=== PATIENT | female | born 1950 | race Caucasian/White ===

== ENCOUNTER 2019-06-23 11:03 | Observation (INO) ==
[2019-06-23 11:46] LABS: Basophils # 0.1 K/mcL (0.0-0.2); Basophils % 1.3 %; Eosinophils # 0.1 K/mcL (0.0-0.6); Eosinophils % 1.2 %; Hematocrit 50.2 % (35.3-44.9); Immature Granulocytes % 0.3 % (0-4); Lymphocytes # 1.4 K/mcL (0.6-4.6); Lymphocytes % 19.9 %; Mean Corpuscular HGB Conc 33.9 g/dL (31.6-35.5); Mean Corpuscular Hemoglobin 31.7 pg (28.0-33.3); Mean Corpuscular Volume 93.5 fL (83.0-100.0); Mean Platelet Volume 9.5 fL (9.4-12.4); Monocytes % 13.9 %; Neutrophils # 4.4 K/mcL (1.6-8.9); Platelet Count 211 K/mcL (140-400); Red Blood Count 5.37 M/mcL (3.82-4.97); Red Cell Distribution Width 14.2 % (11.5-14.5); Segmented Neutrophils % 63.4 %; White Blood Count 6.9 K/mcL (4.3-11.1)
[2019-06-23] MEDS ORDERED: Aspirin 81 MG TAB.CHEW PO ONE (11:48)
[2019-06-23 11:53] LABS: Carboxyhemoglobin 3.7 % (0-3)
[2019-06-23 11:54] LABS: INR 1.6; Prothrombin Time 18.5 Seconds (9.4-12.1)
[2019-06-23 11:57] LABS: Activated Partial Thrombo Time 35.2 Seconds (26.0-36.0)
[2019-06-23 12:02] LABS: Alanine Aminotransferase 16 Units/L (7-52); Albumin 3.5 g/dL (3.5-5.7); Albumin/Globulin Ratio 1.1 (1.1-2.2); Alkaline Phosphatase 105 Units/L (34-104); Aspartate Amino Transferase 33 Units/L (13-39); BUN/Creatinine Ratio 18 (6-26); Blood Urea Nitrogen 20 mg/dL (8-23); Calcium 9.2 mg/dL (8.6-10.3); Carbon Dioxide 26 mEq/L (23-29); Chloride 90 mEq/L (98-107); Globulin 3.1 g/dL (2.4-3.5); Glucose 65 mg/dL (70-105); Osmolality,Calculated 277 (280-300); Potassium 4.6 mEq/L (3.5-5.1); Sodium 133 mEq/L (136-145); Total Protein 6.6 g/dL (6.4-8.9); eGFR For African Americans 57 (> 60); eGFR For Non-African Americans 47 (> 60)
[2019-06-23 12:05] LABS: Troponin I < 0.03 ng/mL (< 0.04)
[2019-06-23] MEDS ORDERED: Dextrose Gel 15 GM/37.5 ML TUBE PO PRN ×2 (13:57)
[2019-06-23] MEDS ORDERED: Naloxone 0.4 MG/ML INJ IVP PRN (13:57)
[2019-06-23] MEDS ORDERED: *HR* Dextrose 50 % in Water (Vial) 50 ML VIAL IVP PRN (13:57)
[2019-06-23] MEDS ORDERED: D5% in Water 1,000 ML IVC PRN (13:57)
[2019-06-23] MEDS ORDERED: Albuterol 2.5 MG/3 ML NEBULIZER AER SCH (16:00)
[2019-06-23] MEDS ORDERED: Albuterol 2.5 MG/3 ML NEBULIZER AER PRN (16:15)
[2019-06-23] MEDS ORDERED: *HR* Rivaroxaban 15 MG TABLET PO SCH (17:00)
[2019-06-23] MEDS ORDERED: Bumetanide 1 MG/4 ML VIAL IVP SCH (17:00)
[2019-06-23] MEDS: Insulin LISPRO 300 UNITS/3 ML VIAL SQ SCH (17:56)
[2019-06-23] MEDS: Budesonide/Formoterol 80/4.5 1 PUFF INH IH SCH (20:47)
[2019-06-23] MEDS: *HR* Digoxin 0.5 MG/2 ML AMPUL IVP SCH (20:53)
[2019-06-24] MEDS: *HR* Digoxin 0.5 MG/2 ML AMPUL IVP SCH (03:23)
[2019-06-24 05:38] LABS: Basophils # 0.1 K/mcL (0.0-0.2); Basophils % 1.1 %; Eosinophils # 0.2 K/mcL (0.0-0.6); Eosinophils % 3.7 %; Hematocrit 44.1 % (35.3-44.9); Immature Granulocytes % 0.6 % (0-4); Lymphocytes # 1.2 K/mcL (0.6-4.6); Mean Corpuscular Hemoglobin 31.4 pg (28.0-33.3); Mean Corpuscular Volume 92.3 fL (83.0-100.0); Mean Platelet Volume 9.6 fL (9.4-12.4); Monocytes # 0.9 K/mcL (0.0-1.3); Monocytes % 16.9 %; Neutrophils # 2.9 K/mcL (1.6-8.9); Platelet Count 184 K/mcL (140-400); Red Blood Count 4.78 M/mcL (3.82-4.97); Segmented Neutrophils % 54.7 %; White Blood Count 5.3 K/mcL (4.3-11.1)
[2019-06-24 06:20] LABS: BUN/Creatinine Ratio 23 (6-26); Blood Urea Nitrogen 18 mg/dL (8-23); Calcium 8.4 mg/dL (8.6-10.3); Carbon Dioxide 31 mEq/L (23-29); Chloride 94 mEq/L (98-107); Glucose 77 mg/dL (70-105); Osmolality,Calculated 277 (280-300); Sodium 133 mEq/L (136-145); eGFR For African Americans > 60 (> 60); eGFR For Non-African Americans > 60 (> 60)
[2019-06-24] MEDS: Insulin LISPRO 300 UNITS/3 ML VIAL SQ SCH ×2 (08:02→13:15)
[2019-06-24] MEDS ORDERED: Aspirin Enteric Coated 81 MG Tablet PO SCH (09:00)
[2019-06-24] MEDS ORDERED: Loratadine 10 MG TABLET PO SCH (09:00)
[2019-06-24] MEDS ORDERED: Furosemide 20 MG TABLET PO SCH (09:00)
[2019-06-24] MEDS: Budesonide/Formoterol 80/4.5 1 PUFF INH IH SCH (10:02)
[2019-06-24 11:59] VITALS: BP 148/102
== END 2019-06-24 16:10 | disposition home or self-care (01) ==
LOC: EMEROOPIK 11:03 → INPPIK 11:03 → SUATTDRO 13:24 → INPPIK 14:33
PROVIDERS: ADMIT Internal Medicine; ATTEND Family Medicine

== ENCOUNTER 2019-07-18 02:18 | Inpatient (IN) ==
[2019-07-18] MEDS ORDERED: Ondansetron 4 MG/2 ML VIAL ONE ×2 (02:27→04:00)
[2019-07-18] MEDS ORDERED: methylPREDNISolone 125 MG/2 ML VIAL IVP ONE (03:02)
[2019-07-18] MEDS ORDERED: Ipratropium/Albuterol Neb 3 ML IH ONE (03:02)
[2019-07-18 05:09] LABS: Basophils # 0.1 K/mcL (0.0-0.2); Basophils % 1.1 %; Eosinophils % 0.3 %; Hemoglobin 20.1 g/dL (11.5-15.4); Immature Granulocytes % 0.2 % (0-4); Lymphocytes # 1.4 K/mcL (0.6-4.6); Lymphocytes % 15.8 %; Mean Corpuscular HGB Conc 33.8 g/dL (31.6-35.5); Mean Corpuscular Hemoglobin 30.8 pg (28.0-33.3); Mean Corpuscular Volume 91.3 fL (83.0-100.0); Monocytes # 1.2 K/mcL (0.0-1.3); Monocytes % 13.1 %; Neutrophils # 6.1 K/mcL (1.6-8.9); Platelet Count 247 K/mcL (140-400); Red Blood Count 6.52 M/mcL (3.82-4.97); Red Cell Distribution Width 14.6 % (11.5-14.5); Segmented Neutrophils % 69.5 %; White Blood Count 8.8 K/mcL (4.3-11.1)
[2019-07-18 05:21] LABS: Hematocrit 59.5 % (35.3-44.9)
[2019-07-18] MEDS ORDERED: Isovue-370 500 ML BOTTLE IVP ONE (05:24)
[2019-07-18 05:46] LABS: Alanine Aminotransferase 12 Units/L (7-52); Albumin 3.2 g/dL (3.5-5.7); Albumin/Globulin Ratio 0.9 (1.1-2.2); Alkaline Phosphatase 89 Units/L (34-104); Aspartate Amino Transferase 28 Units/L (13-39); BUN/Creatinine Ratio 18 (6-26); Bilirubin,Total 0.8 mg/dL (0.3-1.0); Blood Urea Nitrogen 14 mg/dL (8-23); Calcium 9.2 mg/dL (8.6-10.3); Carbon Dioxide 22 mEq/L (23-29); Chloride 96 mEq/L (98-107); Globulin 3.4 g/dL (2.4-3.5); Glucose 73 mg/dL (70-105); Osmolality,Calculated 279 (280-300); Potassium 5.1 mEq/L (3.5-5.1); Sodium 135 mEq/L (136-145); Total Protein 6.6 g/dL (6.4-8.9); eGFR For African Americans > 60 (> 60); eGFR For Non-African Americans > 60 (> 60)
[2019-07-18] MEDS ORDERED: Ondansetron 4 MG/2 ML VIAL IVP ONE (06:46)
[2019-07-18] MEDS ORDERED: Ondansetron ODT 4 MG TAB.RAPDIS SL PRN (10:20)
[2019-07-18] MEDS ORDERED: Mag Hydrox/Al Hydrox/Simeth 30 ML UDC PO PRN (10:20)
[2019-07-18] MEDS ORDERED: Naloxone 0.4 MG/ML INJ IVP PRN (10:20)
[2019-07-18] MEDS ORDERED: Ipratropium/Albuterol Neb 3 ML IH PRN (10:32)
[2019-07-18] MEDS: Budesonide/Formoterol 80/4.5 1 PUFF INH IH SCH ×2 (10:57→22:16)
[2019-07-18] MEDS: 0.9 % Sodium Chloride 1,000 ML IVC SCH ×2 (12:15→17:26)
[2019-07-18] MEDS ORDERED: *HR* Metoprolol 5 MG/5 ML VIAL IVP ONE (12:25)
[2019-07-18] MEDS ORDERED: Ondansetron ODT 4 MG TAB.RAPDIS SL ONE (16:00)
[2019-07-18] MEDS ORDERED: Albuterol 2.5 MG/3 ML NEBULIZER IH PRN (16:00)
[2019-07-18] MEDS ORDERED: 0.9 % Sodium Chloride 500 ML IV ONE (16:03)
[2019-07-18] MEDS ORDERED: *HR* Rivaroxaban 10 MG TABLET PO SCH (17:00)
[2019-07-18] MEDS: MethylPREDNISolone 40 MG/ML VIAL IVP SCH ×2 (17:27→23:59)
[2019-07-18 18:25] LABS: Adenovirus Not Detected (Not Detect); Bordetella Pertussis Not Detected (Not Detect); Chlamydophila pneumoniae Not Detected (Not Detect); Coronavirus 229E Not Detected (Not Detect); Coronavirus HKU1 Not Detected (Not Detect); Coronavirus NL63 Not Detected (Not Detect); Coronavirus OC43 Not Detected (Not Detect); Human Metapneumovirus Not Detected (Not Detect); Human Rhinovirus/Enterovirus Not Detected (Not Detect); Influenza A Subtype 2009 H1 Not Detected (Not Detect); Influenza B Not Detected (Not Detect); Mycoplasma pneumoniae Not Detected (Not Detect); Parainfluenza Virus 1 Not Detected (Not Detect); Parainfluenza Virus 2 Not Detected (Not Detect); Parainfluenza Virus 3 Not Detected (Not Detect); Parainfluenza Virus 4 Not Detected (Not Detect); Respiratory Syncytial Virus Not Detected (Not Detect)
[2019-07-18] MEDS: Metoprolol XL (24 HR) Succ 50 MG TAB.ER.24H PO SCH (20:03)
[2019-07-18] MEDS: Ondansetron ODT 4 MG TAB.RAPDIS SL PRN (20:18)
[2019-07-18 21:16] LABS: Bilirubin,Urine Moderate (Negative); Blood,Urine Trace-intact (Negative); Clarity,Urine Slightly Cloudy (Clear); Glucose,Urine (UA) Normal (Normal); Ketones,Urine 15 mg/dL (Negative); Leukocyte Esterase,Urine Negative (Negative); Nitrite,Urine Negative (Negative); Protein,Urine 100 mg/dL (Neg-Trace); Specific Gravity,Urine 1.015 (1.010-1.025); Urobilinogen,Urine Normal (Normal)
[2019-07-18 21:23] LABS: Color,Urine Dark-Yellow (Yellow); WBC,Urine 0-3 per hpf (0-3)
[2019-07-18 21:24] LABS: Hyaline Casts,Urine Few per lpf (None-Few); Mucus,Urine Few per lpf (Few); Squamous Epithelial Cell,Urine Few per lpf (None-Few)
[2019-07-19] MEDS: MethylPREDNISolone 40 MG/ML VIAL IVP SCH ×3 (04:17→18:16)
[2019-07-19] MEDS: Ondansetron ODT 4 MG TAB.RAPDIS SL PRN (04:24)
[2019-07-19 06:13] LABS: Basophils % 0.2 %; Hematocrit 47.7 % (35.3-44.9); Hemoglobin 16.4 g/dL (11.5-15.4); Immature Granulocytes % 0.8 % (0-4); Lymphocytes # 1.3 K/mcL (0.6-4.6); Lymphocytes % 10.2 %; Mean Corpuscular HGB Conc 34.4 g/dL (31.6-35.5); Mean Corpuscular Volume 90.2 fL (83.0-100.0); Monocytes # 0.8 K/mcL (0.0-1.3); Monocytes % 6.8 %; Neutrophils # 10.2 K/mcL (1.6-8.9); Platelet Count 215 K/mcL (140-400); Red Blood Count 5.29 M/mcL (3.82-4.97); Red Cell Distribution Width 14.7 % (11.5-14.5); White Blood Count 12.4 K/mcL (4.3-11.1)
[2019-07-19 06:32] LABS: Calcium 8.7 mg/dL (8.6-10.3); Potassium 5.8 mEq/L (3.5-5.1)
[2019-07-19] MEDS: Metoprolol XL (24 HR) Succ 50 MG TAB.ER.24H PO SCH ×2 (08:08→21:15)
[2019-07-19] MEDS ORDERED: 0.9 % Sodium Chloride 500 ML IVC SCH (08:30)
[2019-07-19] MEDS ORDERED: Furosemide 20 MG TABLET PO SCH (09:00)
[2019-07-19] MEDS ORDERED: Nicotine 21 MG PATCH.TD24 TD SCH (09:00)
[2019-07-19] MEDS ORDERED: Loratadine 10 MG TABLET PO SCH (09:00)
[2019-07-19] MEDS ORDERED: Furosemide 40 MG/4 ML VIAL IVP SCH (09:00)
[2019-07-19] MEDS: Budesonide/Formoterol 80/4.5 1 PUFF INH IH SCH ×2 (09:51→22:17)
[2019-07-19] MEDS ORDERED: Promethazine 12.5 MG in 0.9 % Sodium Chloride 100 ML IVPB PRN (11:13)
[2019-07-19] MEDS ORDERED: 0.9 % Sodium Chloride 500 ML IVC ONE (11:14)
[2019-07-19] MEDS ORDERED: Folic Acid 1 MG TABLET PO SCH (11:15)
[2019-07-19] MEDS ORDERED: Vitamin B Complex/Vit C/Vit E 1 EACH TABLET PO SCH (11:15)
[2019-07-19] MEDS ORDERED: Thiamine (B-1) 100 MG TABLET PO SCH (11:15)
[2019-07-19] MEDS: *HR* LORazepam 1 MG TABLET PO SCH ×2 (11:42→16:11)
[2019-07-19] MEDS ORDERED: 0.9 % Sodium Chloride 1,000 ML IVC SCH (13:14)
[2019-07-19] MEDS ORDERED: 0.9 % Sodium Chloride 1,000 ML IV ONE (14:21)
[2019-07-19 16:14] LABS: BUN/Creatinine Ratio 32 (6-26); Blood Urea Nitrogen 35 mg/dL (8-23); Calcium 8.4 mg/dL (8.6-10.3); Carbon Dioxide 23 mEq/L (23-29); Chloride 95 mEq/L (98-107); Glucose 124 mg/dL (70-105); Osmolality,Calculated 283 (280-300); Sodium 132 mEq/L (136-145); eGFR For African Americans > 60 (> 60); eGFR For Non-African Americans 50 (> 60)
[2019-07-19 16:17] LABS: Potassium 6.7 mEq/L (3.5-5.1)
[2019-07-19] MEDS ORDERED: *HR* Dextrose 50 % in Water (Vial) 50 ML VIAL IVP ONE (16:25)
[2019-07-19] MEDS ORDERED: Insulin LISPRO 300 UNITS/3 ML VIAL SQ SCH (16:25)
[2019-07-19] MEDS ORDERED: Insulin Human Regular 10 UNIT in 0.9 % Sodium Chloride 10 ML IV ONE (16:34)
[2019-07-19] MEDS ORDERED: *HR* Rivaroxaban 15 MG TABLET PO SCH (17:00)
[2019-07-19 19:00] VITALS: BP 138/94
== END 2019-07-19 21:55 | disposition short-term general hospital (02) | DRG 191 ==
LOC: EMEROOPIK 02:18 → INPPIK 08:13 → INTOOBSV 08:13 → INPPIK 09:55
PROVIDERS: ADMIT Family Medicine; ATTEND Family Medicine